=== PATIENT | female | born 1935 | race Caucasian/White ===

== ENCOUNTER 2018-10-30 09:37 | Emergency (ER) | payer MEDICARE, OTHER, SELFPAY ==
[2018-10-30 09:49] VITALS: BP 180/100; PULSE 77; RESP 13; TEMP 36.2; O2SAT 100
--- NOTE | 2018-10-30 09:54 | ED_ITS ---
HPI - Abdominal Pain General Chief Complaint: Abdominal Pain Stated Complaint: PAIN LEFT SIDE Time Seen by Provider: 10/30/18 09:39 Source: patient Mode of arrival: ambulatory Limitations: no limitations History of Present Illness HPI narrative: Patient is an 83-year-old female here for evaluation of left- sided abdominal pain. Patient states that the symptoms started yesterday. She has had some nausea. Overnight she had EMS come out to her house on 2 different occasions but was not transported to the emergency department. She states that has been 4 days since she has had a bowel movement. No urinary symptoms. She has had a hysterectomy in the past. Has had a stroke in the past with left- sided residual deficits which are not new. Not on anticoagulation. Related Data Home Medications Medication Instructions Recorded Confirmed losartan 25 mg PO DAILY #0 01/05/17 10/30/18 metoprolol tartrate 50 mg PO BID #0 01/05/17 10/30/18 Vitamin D3 1 cap PO DAILY 10/30/18 10/30/18 aspirin 81 mg PO QPM 10/30/18 10/30/18 atorvastatin 20 mg PO QPM 10/30/18 10/30/18 calcium carbonate [Calcium 500] 500 mg PO DAILY 10/30/18 10/30/18 docusate sodium 100 mg PO DAILY 10/30/18 10/30/18 magnesium gluconate 250 mg PO DAILY 10/30/18 10/30/18 oxybutynin chloride 5 mg PO QPM 10/30/18 10/30/18 Previous Rx's Medication Instructions Recorded ondansetron 4 mg PO Q6H PRN #10 tab 10/30/18 tramadol [Ultram] 50 mg PO Q6H PRN #14 tab 10/30/18 Allergies Allergy/AdvReac Type Severity Reaction Status Date / Time protamine Allergy Severe cardiac Verified 10/30/18 11:54 arrest No Known Allergies Allergy Uncoded 07/26/17 11:49 Review of Systems Constitutional Denies fever(s) and Denies headache(s) ENT Ears, Nose, Mouth, and Throat: Denies headache(s) Cardiovascular Denies chest pain and Denies dyspnea Respiratory Denies dyspnea Gastrointestinal Gastrointestinal: Reports abdominal pain, Reports nausea and Denies vomiting Comments: No bowel movement for 4 days Genitourinary Denies dysuria and Denies vaginal discharge Musculoskeletal Denies myalgias and Denies arthralgias Integumentary/Breasts Denies rash Neurologic Denies behavioral changes and Denies headache(s) Psychiatric Denies behavioral changes Hematologic/Lymphatic Denies easy bleeding and Denies easy bruising [facility] Medical History CVA (cerebral vascular accident) (Acute) History of hysterectomy (Acute) Social History lives independently: Yes caregiver/support person: Yes Smoking Status: Never smoker Social History lives independently: Yes caregiver/support person: Yes Smoking Status: Never smoker Exam Initial Vital Signs Initial Vital Signs: Vital Signs Temperature 97.2 F L 10/30/18 09:49 Pulse Rate 77 10/30/18 09:49 Respiratory Rate 13 10/30/18 09:49 Blood Pressure 180/100 H 10/30/18 09:49 Pulse Oximetry 100 10/30/18 09:49 Const General: cooperative, well developed, well groomed and No acute distress Orientation: alert, awake and oriented x3 HENMT Head: normal to inspection and normocephalic Resp Effort & Inspection: normal respiratory effort Auscultation: clear to auscultation bilaterally Cardio Rate: regular rate Rhythm: regular rhythm Pulses: radial pulses present GI Inspection: non-distended Palpation: No firm, No guarding and tender (Left abdomen) Back/Spine/Pelvis Back: No CVA tenderness Skin Lesions: no lesions Rashes: no rashes Extrem General: normal to inspection and capillary refill normal Psych Appearance: grossly normal and well kempt Course Orders Ordered: ED Orders 10/30/18 09:55 CT abdomen pelvis wo con Stat 10/30/18 10:30 Complete Blood Count AUTO DIFF Stat Comprehensive Metabolic Panel Stat Lipase Stat 10/30/18 10:56 Lactate (Lactic Acid) Stat 10/30/18 12:51 UA Complete [Urinalysis and Microscopic] Stat Urine Culture Stat Sodium Chloride (Normal Saline 0.9%) 1,000 mls @ 150 mls/hr IV CONT MONCHO Last Admin: 10/30/18 10:39 Dose: 150 mls/hr Discontinued Medications Morphine Sulfate (Morphine) 2 mg IV NOW ONE Stop: 10/30/18 09:55 Last Admin: 10/30/18 10:46 Dose: Not Given Morphine Sulfate (Morphine) 2 mg IV NOW ONE Stop: 10/30/18 10:41 Last Admin: 10/30/18 10:48 Dose: 2 mg Ondansetron HCl (Zofran) 4 mg IV NOW ONE Stop: 10/30/18 09:55 Last Admin: 10/30/18 10:39 Dose: 4 mg Vital Signs - 8 hr 10/30/18 09:49 10/30/18 10:00 10/30/18 11:00 Temperature 97.2 F L Pulse Rate 77 80 76 Respiratory Rate 13 22 20 Blood Pressure 180/100 H Blood Pressure [Right Arm] 175/85 H 149/79 H Pulse Oximetry 100 96 94 10/30/18 12:30 Temperature Pulse Rate 72 Respiratory Rate 18 Blood Pressure Blood Pressure [Right Arm] 136/64 Pulse Oximetry 100 MDM - Abdominal Pain Lab Data Attestation: I reviewed the patient's lab results. Result diagrams: 10/30/18 10:30 10/30/18 10:30 Lab Results 10/30/18 10/30/18 10/30/18 Range/Units 10:30 10:30 10:56 WBC 11.9 H (4.5-11.0) X10^3/uL RBC 4.56 (4.0-5.2) X10^6/uL Hgb 14.4 (12.0-16.0) g/dL Hct 43.1 (36-46) % MCV 94.5 (80-100) fL MCH 31.5 (26-34) PG MCHC 33.3 (30-36) % RDW 14.0 (11.6-14.8) % Plt Count 174 (150-400) X10^3/uL Neut % (Auto) 90.2 H (50-75) % Lymph % (Auto) 5.9 L (25-40) % [place] % (Auto) 3.7 (3-14) % Eos % (Auto) 0.0 L (2-4) % Baso % (Auto) 0.2 (0-2) % Neut # (Auto) 54987 H (2813-8478) /uL Lymph # (Auto) 700 L (6434-6457) /uL [place] # (Auto) 400 (0-900) /uL Eos # (Auto) 0 (0-450) /uL Baso # (Auto) 0 (0-100) /uL Sodium 142 (137-145) mmol/L Potassium 5.1 (3.4-5.1) mmol/L Chloride 107 (98-107) mmol/L Carbon Dioxide 24 (22-32) mmol/L BUN 27 H (7-17) mg/dL Creatinine 1.90 H (0.52-1.04) mg/dL Estimated GFR 25.2 L (>60) mL/min BUN/Creatinine Ratio 14.2 (6-22) Glucose 146 H (80-110) mg/dL Lactate 1.0 (0.7-2.1) mmol/L Calcium 10.9 H (8.4-10.2) mg/dL Total Bilirubin 1.5 H (0.2-1.3) mg/dL AST 31 (14-36) IU/L ALT 19 (9-52) IU/L Alkaline Phosphatase 70 (38-126) U/L Total Protein 8.6 H (6.3-8.2) g/dL Albumin 4.9 (3.5-5.0) g/dL Globulin 3.7 (1.7-4.1) g/dL Albumin/Globulin Ratio 1.3 (1.0-2.8) Lipase 82 (23-300) U/L Urine Color Urine Appearance Urine pH (4.5-8.0) Ur Specific [place] (1.000-1.035) Urine Protein (Negative) Urine Glucose (UA) (Negative) g/dL Urine Ketones (NEGATIVE) Urine Occult Blood (Negative) Urine Nitrate (Negative) Urine Bilirubin (NEGATIVE) Urine Urobilinogen (0.2) E.U./dL Ur Leukocyte Esterase (NEGATIVE) Urine RBC (0-5/HPF) Urine WBC (0-5/HPF) Ur Squamous Epith Cells (0-5/HPF) Ur Renal Epithelial Cell (0-1/HPF) Calcium Oxalate Crystal Amorphous Sediment Urine Bacteria (None) Urine Mucus (Negative) Ur Culture Indicated? 10/30/18 Range/Units 12:51 WBC (4.5-11.0) X10^3/uL RBC (4.0-5.2) X10^6/uL Hgb (12.0-16.0) g/dL Hct (36-46) % MCV (80-100) fL MCH (26-34) PG MCHC (30-36) % RDW (11.6-14.8) % Plt Count (150-400) X10^3/uL Neut % (Auto) (50-75) % Lymph % (Auto) (25-40) % [place] % (Auto) (3-14) % Eos % (Auto) (2-4) % Baso % (Auto) (0-2) % Neut # (Auto) (4357-7232) /uL Lymph # (Auto) (6651-5655) /uL [place] # (Auto) (0-900) /uL Eos # (Auto) (0-450) /uL Baso # (Auto) (0-100) /uL Sodium (137-145) mmol/L Potassium (3.4-5.1) mmol/L Chloride (98-107) mmol/L Carbon Dioxide (22-32) mmol/L BUN (7-17) mg/dL Creatinine (0.52-1.04) mg/dL Estimated GFR (>60) mL/min BUN/Creatinine Ratio (6-22) Glucose (80-110) mg/dL Lactate (0.7-2.1) mmol/L Calcium (8.4-10.2) mg/dL Total Bilirubin (0.2-1.3) mg/dL AST (14-36) IU/L ALT (9-52) IU/L Alkaline Phosphatase (38-126) U/L Total Protein (6.3-8.2) g/dL Albumin (3.5-5.0) g/dL Globulin (1.7-4.1) g/dL Albumin/Globulin Ratio (1.0-2.8) Lipase (23-300) U/L Urine Color Yellow Urine Appearance Slightly cloudy Urine pH 5.0 (4.5-8.0) Ur Specific [place] 1.025 (1.000-1.035) Urine Protein 2+ H (Negative) Urine Glucose (UA) Negative (Negative) g/dL Urine Ketones Trace H (NEGATIVE) Urine Occult Blood 3+ H (Negative) Urine Nitrate Positive (Negative) Urine Bilirubin Negative (NEGATIVE) Urine Urobilinogen 0.2 (0.2) E.U./dL Ur Leukocyte Esterase Trace H (NEGATIVE) Urine RBC 30-100/hpf H (0-5/HPF) Urine WBC 5-10/hpf H (0-5/HPF) Ur Squamous Epith Cells 0-1 /hpf (0-5/HPF) Ur Renal Epithelial Cell 0-1/hpf (0-1/HPF) Calcium Oxalate Crystal Few H Amorphous Sediment 2+ Urine Bacteria Many (>30) H (None) Urine Mucus 2+ H (Negative) Ur Culture Indicated? Specimen cultured Imaging Data CT scan - abdomen: Radiologist's impression: [address] [address] [address] Scan Report Signed Patient: Christianne Martinez [facility]#: [id number] : 5Acct:[id number] Age/Sex: 83 / FDate of Service: 10/30/18 Loc: ED Accession Number: [id number] Procedure: CT abdomen pelvis wo con Ordering Provider: Brant Carr D.O. PROCEDURE: CT ABDOMEN PELVIS WO CON INDICATIONS: Sudden onset of Left-sided abdominal pain last night TECHNIQUE: Noncontrast 5 mm thick sections acquired from the diaphragms to the symphysis. 5 mm coronal and sagittal reformats were then performed. For radiation dose reduction, the following was used: automated exposure control, adjustment of mA and/or kV according to patient size. COMPARISON: None. FINDINGS: Image quality: Excellent. ABDOMEN: Lung bases: Left basilar atelectasis is seen. Heart size is enlarged, no pericardial effusion. Solid organs: Liver is normal in size. 1 cm hypodense area is seen involving anterior aspect of left hepatic lobe and measures approximately 16 Hounsfield unit den sity. 2.5 x 2.6 cm fluid density structure is noted in lateral periphery of right hepatic lobe. Gallbladder is within normal limits. Pancreas is normal in contours. Spleen is normal in size. No adrenal nodules. Left kidney is asymmetrically enlarged with moderate left perinephric fat stranding. Moderate prominence of left renal collecting system is seen. 3 mm calcification is noted in left mid ureter. No right-sided renal stone or hydronephrosis is seen. Right ureter is within normal limits. Peritoneum and bowel: Unenhanced bowel loops demonstrate normal wall thickness and caliber. No free fluid or air. There is a small to moderate size hiatal hernia. Fecal stasis in the colon is seen. Sigmoid diverticulosis is noted, no CT evidence of acute diverticulitis. Nodes and vessels: No retroperitoneal or mesenteric adenopathy by size criteria. Aorta and inferior vena cava are normal in caliber. Miscellaneous: No ventral hernias. PELVIS: Genitourinary: Bladder wall thickness is mildly thickened with no discrete bladder wall mass. Finding may represent chronic urinary outlet obstruction. Miscellaneous: No inguinal hernias or adenopathy. Bones: No suspicious bony lesions. S-shaped scoliosis of thoracolumbar spine is seen. 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 No acute vertebral body compression fractures. IMPRESSION: 1. 3 mm left mid ureteral stone with moderate left hydronephrosis and proximal left hydroureter. No right-sided renal stone hydronephrosis. Normal appearing right ureter. 2. Mild diffuse bladder wall thickening, no discrete bladder wall mass. Finding may represent mild chronic urinary outlet obstruction. 3. Constipation. Small to moderate size hiatal hernia. No free fluid or free air. Sigmoid diverticulosis with no evidence of acute diverticulitis. 4. 2 well-circumscribed hypodensities in right and left hepatic lobes and may represent hepatic cysts. Dictated by: Rashaun Toscano M.D. on 10/30/2018 at 11:32 Approved by: Rashaun Toscano M.D. on 10/30/2018 at 11:45 MDM Narrative Medical decision making narrative: Nontoxic appearing. Patient does have a low GFR however the left-sided renal stone is small and should pass on its own. Has bacteria in the urine but no other signs urinary tract infection. She does not have a fever. Will hold on any antibiotics for now. Will wait for the culture to result. Patient was informed that a culture was pending and we would call her if we needed start her on antibiotics. She was given return precautions. I do suspect that her left-sided pain is secondary to the kidney stone. I talked with her and her caregiver about this. We did discuss pain medication and the importance of avoiding falling. She expressed understanding and agreement plan. Discharge Plan Departure Patient Disposition: Home Clinical Impression: Renal colic on left side Instructions: DI for Kidney Stones Activity Restrictions/Additional Instructions: Continue all of your medications as directed. Contact your primary provider today to discuss a re-evaluation and any indication for referral to see Urology. You also need to have your kidney function re-evaluated. There is a urine c ulture pending and we will call you for any positive results. Return to the emergency department for any fevers, inability to tolerate oral intake, worsening pain, or any other concerning symptoms Prescriptions: New tramadol [Ultram] 50 mg tablet 50 mg PO Q6H PRN (Reason: pain) Qty: 14 RF: 0 ondansetron 4 mg tablet,disintegrating 4 mg PO Q6H PRN (Reason: nausea and vomiting) Qty: 10 RF: 0 No Action metoprolol tartrate 50 MG tablet 50 mg PO BID Qty: 0 RF: 0 losartan 25 MG tablet 25 mg PO DAILY Qty: 0 RF: 0 atorvastatin 20 mg Tablet 20 mg PO QPM RF: 0 calcium carbonate [Calcium 500] 500 mg calcium (1,250 mg) Tablet 500 mg PO DAILY RF: 0 docusate sodium 100 mg Capsule 100 mg PO DAILY RF: 0 oxybutynin chloride 5 mg Tablet Extended Release 24hr 5 mg PO QPM RF: 0 aspirin 81 mg Tablet,Chewable 81 mg PO QPM RF: 0 Vitamin D3 1 cap PO DAILY RF: 0 magnesium gluconate 250 mg 250 mg PO DAILY RF: 0 Referrals: Dontae Nation MD [Primary Care Provider] -
[2018-10-30 10:00] VITALS: BP 175/85; PULSE 80; RESP 22; O2SAT 96
[2018-10-30] MEDS: SODIUM CHLORIDE 0.9% 1,000 ML 150 ML IV (10:39)
[2018-10-30] MEDS: ONDANSETRON 4 MG/2 ML INJ IV (10:39)
[2018-10-30 10:41] LABS: Add Manual Diff / Slide Review NO; Basophils Absolute Auto 0 /uL (0-100); Basophils Percent Auto 0.2 % (0-2); Eosinophils Absolute Auto 0 /uL (0-450); Hematocrit 43.1 % (36-46); Hemoglobin 14.4 g/dL (12.0-16.0); Lymphocytes Absolute Auto 700 /uL (1100-4500); Lymphocytes Percent Auto 5.9 % (25-40); Mean Corpuscular HGB Conc 33.3 % (30-36); Mean Corpuscular Hemoglobin 31.5 PG (26-34); Mean Corpuscular Volume 94.5 fL (80-100); Monocytes Absolute Auto 400 /uL (0-900); Monocytes Percent Auto 3.7 % (3-14); Neutrophils Absolute Auto 10700 /uL (1500-7000); Neutrophils Percent Auto 90.2 % (50-75); Platelet Count 174 X10^3/uL (150-400); Red Blood Cell Count 4.56 X10^6/uL (4.0-5.2); White Blood Cell Count 11.9 X10^3/uL (4.5-11.0)
[2018-10-30] MEDS: MORPHINE 2 MG/ML INJ IV (10:48)
[2018-10-30 10:57] LABS: Alanine Aminotransferase 19 IU/L (9-52); Albumin 4.9 g/dL (3.5-5.0); Albumin Globulin Ratio 1.3 (1.0-2.8); Alkaline Phosphatase 70 U/L (38-126); Aspartate Aminotransferase 31 IU/L (14-36); BUN Creatinine Ratio 14.2 (6-22); Bilirubin Total 1.5 mg/dL (0.2-1.3); Blood Urea Nitrogen 27 mg/dL (7-17); Calcium 10.9 mg/dL (8.4-10.2); Carbon Dioxide 24 mmol/L (22-32); Chloride 107 mmol/L (98-107); Estimated Glomerular Filt Rate 25.2 mL/min (>60); Globulin 3.7 g/dL (1.7-4.1); Glucose 146 mg/dL (80-110); HEMOLYSIS 45 (0-50); Lipase 82 U/L (23-300); Potassium 5.1 mmol/L (3.4-5.1); Sodium 142 mmol/L (137-145); Total Protein 8.6 g/dL (6.3-8.2)
[2018-10-30 11:00] VITALS: BP 149/79; PULSE 76; RESP 20; O2SAT 94
--- NOTE | 2018-10-30 11:12 | PC.NURSE ---
pt states intermittent dry heaving in the night.
[2018-10-30 12:30] VITALS: BP 136/64; PULSE 72; RESP 18; O2SAT 100
[2018-10-30 12:59] LABS: Bilirubin Urine UA NEGATIVE (NEGATIVE); Color Urine UA YELLOW; Glucose Urine UA NEGATIVE (Negative); Ketones Urine UA TRACE (NEGATIVE); Leukocyte Esterase Urine UA TRACE (NEGATIVE); Nitrite Urine UA POSITIVE (Negative); Occult Blood Urine UA 3+ (Negative); Protein Urine UA 2+ (Negative); Specific Gravity Urine UA 1.025 (1.000-1.035); Urobilinogen Urine UA 0.2 E.U./dL (0.2)
[2018-10-30 13:13] LABS: Appearance Urine UA Slightly Cloudy; RBC Urine 30-100/HPF (0-5/HPF)
[2018-10-30 13:14] LABS: Amorphous Sediment Urine 2+; Bacteria Urine Many (>30); Calcium Oxalate Crystals Urine Few; Culture Indicated Urine Specimen Cultured; Mucus Urine 2+ (Negative); Renal Epithelial Cells Urine 0-1/HPF (0-1/HPF); Squamous Epithelial Cell Urine 0-1 /HPF (0-5/HPF); WBC Urine 5-10/HPF (0-5/HPF)
== END 2018-10-30 13:30 | disposition home or self-care (01) ==
PROVIDERS: Emergency Provider Emergency Medicine; PCP Family Medicine
DX: N23 Unspecified renal colic (principal)
CPT/HCPCS: 74176; 80053; 81001; 83605; 83690; 85025; 87077; 87086; 87186; 96361; 96374; 96375; 99283; 99284; J2270; J2405